=== PATIENT | female | born 1970 | race Caucasian/White ===

== ENCOUNTER 2020-09-16 09:00 | Inpatient (IN) ==
[2020-09-16] MEDS ORDERED: KETOROLAC TROMETHAMINE 15 MG/ML VIAL IV STA (09:51)
[2020-09-16] MEDS ORDERED: ERTAPENEM SODIUM 10 ML IV STA (09:51)
[2020-09-16] MEDS ORDERED: ONDANSETRON INJ 2 MG/ML 2 ML VIAL IV STA (09:51)
[2020-09-16] MEDS ORDERED: ACETAMINOPHEN 500 MG TAB PO STA (09:51)
[2020-09-16] MEDS ORDERED: ALBUT/IPRATROP 3MG/0.5MG NEB 3 ML VIAL NEB STA (09:58)
--- NOTE | 2020-09-16 09:58 | Emergency Department Note ---
Impression & Plan SOB (shortness of breath), Leukocytosis, Flu-like symptoms, Acute dehydration, Skin lesion, Failure of outpatient treatment ED Provider Note NAME: VERONICA PERSON AGE: 50 SEX: F : 1970 ARRIVES VIA: Walk-In INFORMANT: [Patient] ED PROVIDER(S): [Eddie Patino MD] CHIEF COMPLAINT: Illness HISTORY OF PRESENT ILLNESS: The patient is a 50-year-old female presents to the ED with complaints of just not feeling well. She has had shortness of breath, her mouth is sore and feels like it is burning. She has had sweats. The patient states that she has had some cough that has been slightly productive. She has had fever and chills. No nausea or vomiting, no abdominal pain or urinary complaints. She does have a lesion under her left breast that she saw her doctor for yesterday. Cultures were obtained and she was placed on what sounds like Bactrim. She states that she gets these lesions all the time. The patient has not been vaccinated for Covid, she has not had any Covid exposures. Of note, the patient did start prednisone a few days ago, this was started because of her wheezing and dyspnea. REVIEW OF SYSTEMS: See HPI for pertinent positives and negatives. A total of ten systems were reviewed and were otherwise negative. PMHx/PSHx: See Below SOCIAL HISTORY: See Below. PHYSICAL EXAM: GENERAL: Patient is in no acute distress. HEENT: No acute trauma, normocephalic atraumatic, mucous membranes moist, no nasal congestion, no scleral icterus. No throat erythema or exudate, no ulcers. NECK: No stridor, no adenopathy, no meningismus, trachea is midline. LUNGS: Wheezing bilaterally, decreased breath sounds bilaterally, no respiratory distress. HEART: Without murmurs gallops or rubs, regular rate and rhythm. ABDOMEN: Soft, nontender, bowel sounds positive, no hernias, no peritonitis. EXTREMITIES: No cyanosis or edema, full range of motion of all the joints without pain or difficulty, no signs for acute trauma. NEUROLOGIC: Oriented x 3, no acute motor or sensory deficits, no focal weakness. SKIN: The patient has a 2 cm ulcerated lesion underneath her left breast. There is no fluctuance. There is no significant surrounding erythema. The area does not seem tender. She has multiple other areas under this breast which appear to have been older healed lesions. DIFFERENTIAL DIAGNOSIS: Sepsis, UTI, pneumonia, metabolic abnormality, COVID-19, abscess, electrolyte abnormalities, cardiac sources, cellulitis, UTI, bacteremia, intracerebral event, toxicologic etiology, neurologic event, as well as other pathologies. EMERGENCY DEPARTMENT COURSE/PROCEDURES: ECG: Indication was weakness. The ECG shows a normal sinus rhythm with a rate of 73. There is no ST elevation, no PVCs. The QTc is 482. Continuous Cardiac Monitoring: An order was placed for continuous cardiac monitoring. The monitor shows a rate of 70 with normal sinus rhythm. MEDICAL DECISION MAKING: There is a significant leukocytosis at 23,000. This elevation could be consistent with infection or possibly her steroid use. There is a normal hemogl obin and platelet count. No coagulopathy. No significant electrolyte abnormality or kidney failure. Lactic acid level is not elevated making sepsis less likely. No worrisome liver enzyme elevation. ECG showed a sinus rhythm, no acute ischemia. Cardiac enzyme testing x1 is not consistent with acute cardiac injury. Urinalysis does not show infection. Covid testing returned negative. Chest film does not show pneumonia or CHF. On exam, the patient did have an open lesion underneath her left breast, there was no significant surrounding cellulitis, there was no drainage. The patient was given IV saline for hydration. She was given IV Zofran, IV Toradol. She was given a DuoNeb. She was given oral Tylenol. Patient received IV ertapenem as antibiotic coverage. The patient presents with shortness of breath, weakness, fatigue. She has a high white blood cell count. She has an open skin lesion underneath her left breast. She is not improving on her oral antibiotics. On exam, she was wheezing. I think the patient would be best served with a hospital stay. She is not doing well outpatient. I am concerned about early sepsis and/or bacteremia as a cause for some of her presentation. In addition, she appears to be suffering from a flare of COPD. I spoke to the patient, I talked to case management. The on-call hospitalist was consulted. Past Med/Surg History Medical History Anxiety Asthma uses inhaler daily Blood clot associated with vein wall inflammation "superficial blood clot on leg" ~1999 Chronic back pain Depression Hypothyroidism hx -- no medications currently needed Migraine Osteoarthritis Surgical History S/P meniscectomy S/P vein stripping Family History Other No family history of adverse response to anesthesia Social History Smoking Status: Current every day smoker Cigarettes Per Day: 20; Second Hand Exposure: Yes; Do You Dip or Chew Tobacco: No; Tobacco Cessation Education Requested by Patient: No Hx Alcohol Use: No Hx Substance Use: No Preferred Language: [place] Leonean Communication Ability: Effective Outgoing Inspector Required: No Beliefs That Will Affect Care: None marital status: Current Living Situation: Other Current Living Situation Comment: boyfriend current occupational status: employed Other Information That Helps Us Care for You: No Feels Safe at Home: Yes Safety Concerns: Feels Safe At This Time Assistive Devices: Glasses Allergies Allergies Allergy/AdvReac Type Severity Reaction Status Date / Time Penicillins Allergy Severe HIVES, Verified 09/16/20 10:27 THROAT SWELLING Home Meds Home Medications Medication Instructions Recorded Confirmed alprazolam 0.5 mg PO HS 11/06/19 09/16/20 citalopram 20 mg PO QAM 11/06/19 09/16/20 oxycodone-acetaminophen 1 tab PO Q4H PRN 11/06/19 09/16/20 albuterol sulfate 2 puff INHALATION QID PRN 12/18/19 09/16/20 tiotropium bromide [Spiriva 2 puff INHALATION QAM 09/16/20 09/16/20 Respimat] Results & Data (ED) Vital Signs Vital Signs - 24 hr 09/16/20 09:03 09/16/20 09:13 09/16/20 09:15 Temperature 36.8 C Temperature Source Temporal Artery Scan Pulse Rate 84 76 Pulse Rate [Right Finger] 77 Pulse Rate from SpO2 Sensor 75 Pulse Rhythm Regular Pulse Rhythm [Right Finger] Regular Pulse Strength Normal Pulse Strength [Right Finger] Normal Respiratory Rate 26 H 16 15 Respiratory Effort / Characteristics Non-Labored Spontaneous Labored Respiratory Depth Normal Respiratory Pattern Regular Blood Pressure 161/95 H 168/101 H Blood Pressure [Left Arm] 168/101 H Blood Pressure Mean 117 123 Blood Pressure Mean [Left Arm] 123 Blood Pressure Position Sitting Blood Pressure Position [Left Arm] Lying Pulse Oximetry 93 92 92 Oxygen Delivery Method Room Air Room Air Oxygen Flow Rate Sepsis Recent Fever Within 48 Hours No Sepsis New/Unexplained Change in Mental Status N/A Sepsis Action Taken by Nursing No Action Required 09/16/20 09:23 09/16/20 09:30 09/16/20 09:40 Temperature Temperature Source Pulse Rate 76 77 76 Pulse Rate [Right Finger] Pulse Rate from SpO2 Sensor 77 75 76 Pulse Rhythm Pulse Rhythm [Right Finger] Pulse Strength Pulse Strength [Right Finger] Respiratory Rate 18 22 14 Respiratory Effort / Characteristics Respiratory Depth Respiratory Pattern Blood Pressure Blood Pressure [Left Arm] Blood Pressure Mean Blood Pressure Mean [Left Arm] Blood Pressure Position Blood Pressure Position [Left Arm] Pulse Oximetry 91 95 93 Oxygen Delivery Method Oxygen Flow Rate Sepsis Recent Fever Within 48 Hours Sepsis New/Unexplained Change in Mental Status Sepsis Action Taken by Nursing 09/16/20 09:56 09/16/20 10:00 09/16/20 10:10 Temperature Temperature Source Pulse Rate 73 80 Pulse Rate [Right Finger] Pulse Rate from SpO2 Sensor 72 73 79 Pulse Rhythm Pulse Rhythm [Right Finger] Pulse Strength Pulse Strength [Right Finger] Respiratory Rate 20 22 Respiratory Effort / Characteristics Respiratory Depth Respiratory Pattern Blood Pressure Blood Pressure [Left Arm] Blood Pressure Mean Blood Pressure Mean [Left Arm] Blood Pressure Position Blood Pressure Position [Left Arm] Pulse Oximetry 94 96 95 Oxygen Delivery Method Oxygen Flow Rate Sepsis Recent Fever Within 48 Hours Sepsis New/Unexplained Change in Mental Status Sepsis Action Taken by Nursing 09/16/20 10:20 09/16/20 10:21 09/16/20 10:22 Temperature Temperature Source Pulse Rate 72 Pulse Rate [Right Finger] 73 Pulse Rate from SpO2 Sensor 71 Pulse Rhythm Regular Pulse Rhythm [Right Finger] Pulse Strength Pulse Strength [Right Finger] Respiratory Rate 23 18 18 Respiratory Effort / Characteristics Labored Non-Labored Spontaneous Respiratory Depth Respiratory Pattern Blood Pressure Blood Pressure [Left Arm] Blood Pressure Mean Blood Pressure Mean [Left Arm] Blood Pressure Position Blood Pressure Position [Left Arm] Pulse Oximetry 94 95 Oxygen Delivery Method Nasal Cannula Nasal Cannula Nasal Cannula Oxygen Flow Rate 1 2 1.5 Sepsis Recent Fever Within 48 Hours Sepsis New/Unexplained Change in Mental Status Sepsis Action Taken by Nursing 09/16/20 10:26 09/16/20 10:30 09/16/20 10:40 Temperature Temperature Source Pulse Rate 73 74 Pulse Rate [Right Finger] 73 73 Pulse Rate from SpO2 Sensor 73 74 Pulse Rhythm Pulse Rhythm [Right Finger] Regular Regular Pulse Strength Pulse Strength [Right Finger] Normal Normal Respiratory Rate 18 17 15 Respiratory Effort / Characteristics Labored Non-Labored Non-Labored Respiratory Depth Normal Normal Respiratory Pattern Regular Blood Pressure Blood Pressure [Left Arm] 168/101 H 168/101 H Blood Pressure Mean Blood Pressure Mean [Left Arm] 123 123 Blood Pressure Position Blood Pressure Position [Left Arm] Sitting Sitting Pulse Oximetry 92 91 95 Oxygen Delivery Method Nasal Cannula Nasal Cannula Nasal Cannula Oxygen Flow Rate 2 2 2 Sepsis Recent Fever Within 48 Hours Sepsis New/Unexplained Change in Mental Status Sepsis Action Taken by Nursing 09/16/20 10:45 09/16/20 10:50 09/16/20 10:51 Temperature Temperature Source Pulse Rate 72 72 Pulse Rate [Right Finger] 70 Pulse Rate from SpO2 Sensor 73 72 Pulse Rhythm Pulse Rhythm [Right Finger] Regular Pulse Strength Pulse Strength [Right Finger] Normal Respiratory Rate 23 16 17 Respiratory Effort / Characteristics Non-Labored Respiratory Depth Respiratory Pattern Blood Pressure 143/92 H Blood Pressure [Left Arm] 143/92 H Blood Pressure Mean 109 Blood Pressure Mean [Left Arm] 109 Blood Pressure Position Blood Pressure Position [Left Arm] Sitting Pulse Oximetry 95 94 94 Oxygen Delivery Method Nasal Cannula Oxygen Flow Rate 2 Sepsis Recent Fever Within 48 Hours Sepsis New/Unexplained Change in Mental Status Sepsis Action Taken by Nursing 09/16/20 11:00 09/16/20 11:01 09/16/20 11:05 Temperature Temperature Source Pulse Rate 78 72 Pulse Rate [Right Finger] 72 Pulse Rate from SpO2 Sensor 77 Pulse Rhythm Pulse Rhythm [Right Finger] Regular Pulse Strength Pulse Strength [Right Finger] Normal Respiratory Rate 19 20 21 Respiratory Effort / Characteristics Non-Labored Respiratory Depth Respiratory Pattern Blood Pressure 135/95 Blood Pressure [Left Arm] Blood Pressure Mean 108 Blood Pressure Mean [Left Arm] Blood Pressure Position Blood Pressure Position [Left Arm] Pulse Oximetry 97 95 Oxygen Delivery Method Nasal Cannula Nasal Cannula Oxygen Flow Rate 2 2 Sepsis Recent Fever Within 48 Hours Sepsis New/Unexplained Change in Mental Status Sepsis Action Taken by Nursing 09/16/20 11:10 09/16/20 11:20 09/16/20 11:30 Temperature Temperature Source Pulse Rate 72 70 70 Pulse Rate [Right Finger] Pulse Rate from SpO2 Sensor 72 70 69 Pulse Rhythm Pulse Rhythm [Right Finger] Pulse Strength Pulse Strength [Right Finger] Respiratory Rate 14 20 13 Respiratory Effort / Characteristics Spontaneous Respiratory Depth Respiratory Pattern Blood Pressure 134/96 Blood Pressure [Left Arm] Blood Pressure Mean 108 Blood Pressure Mean [Left Arm] Blood Pressure Position Blood Pressure Position [Left Arm] Pulse Oximetry 95 94 94 Oxygen Delivery Method Nasal Cannula Oxygen Flow Rate 2 Sepsis Recent Fever Within 48 Hours Sepsis New/Unexplained Change in Mental Status Sepsis Action Taken by Nursing 09/16/20 11:31 09/16/20 11:32 09/16/20 11:40 Temperature Temperature Source Pulse Rate 72 74 Pulse Rate [Right Finger] 76 Pulse Rate from SpO2 Sensor 71 74 Pulse Rhythm Pulse Rhythm [Right Finger] Regular Pulse Strength Pulse Strength [Right Finger] Normal Respiratory Rate 19 22 13 Respiratory Effort / Characteristics Non-Labored Spontaneous Respiratory Depth Normal Respiratory Pattern Blood Pressure Blood Pressure [Left Arm] 134/96 Blood Pressure Mean Blood Pressure Mean [Left Arm] 108 Blood Pressure Position Blood Pressure Position [Left Arm] Lying Pulse Oximetry 94 95 94 Oxygen Delivery Method Nasal Cannula Oxygen Flow Rate 2 Sepsis Recent Fever Within 48 Hours Sepsis New/Unexplained Change in Mental Status Sepsis Action Taken by Nursing 09/16/20 11:50 09/16/20 12:00 09/16/20 12:01 Temperature Temperature Source Pulse Rate 74 72 71 Pulse Rate [Right Finger] 75 69 Pulse Rate from SpO2 Sensor 74 72 71 Pulse Rhythm Pulse Rhythm [Right Finger] Regular Pulse Strength Pulse Strength [Right Finger] Normal Respiratory Rate 12 13 12 Respiratory Effort / Characteristics Respiratory Depth Respiratory Pattern Blood Pressure 136/100 Blood Pressure [Left Arm] 134/96 136/100 Blood Pressure Mean 112 Blood Pressure Mean [Left Arm] 108 112 Blood Pressure Position Blood Pressure Position [Left Arm] Lying Pulse Oximetry 94 96 96 Oxygen Delivery Method Nasal Cannula Nasal Cannula Oxygen Flow Rate 2 2 Sepsis Recent Fever Within 48 Hours Sepsis New/Unexplained Change in Mental Status Sepsis Action Taken by Nursing 09/16/20 12:10 09/16/20 12:20 09/16/20 13:00 Temperature Temperature Source Pulse Rate 71 71 Pulse Rate [Right Finger] 71 Pulse Rate from SpO2 Sensor 71 71 Pulse Rhythm Pulse Rhythm [Right Finger] Regular Pulse Strength Pulse Strength [Right Finger] Normal Respiratory Rate 15 12 20 Respiratory Effort / Characteristics Respiratory Depth Respiratory Pattern Blood Pressure Blood Pressure [Left Arm] 131/98 Blood Pressure Mean Blood Pressure Mean [Left Arm] 109 Blood Pressure Position Blood Pressure Position [Left Arm] Sitting Pulse Oximetry 97 97 94 Oxygen Delivery Method Nasal Cannula Oxygen Flow Rate 2 Sepsis Recent Fever Within 48 Hours Sepsis New/Unexplained Change in Mental Status Sepsis Action Taken by Intermediate Medications Current Medication List: was personally reviewed by me Laboratory Data Attestation: I reviewed the patient's lab results. Result diagrams: 09/16/20 09:31 09/16/20 09:31 Lab Results 09/16/20 09/16/20 09/16/20 Range/Units 09:31 09:31 09:31 WBC 22.19 H (4.8-10.8) K/uL RBC 4.33 (4.2-5.4) M/uL Hgb 14.1 (12.0-16.0) g/dL Hct 41.3 (37-47) % MCV 95.4 (80-100) fL MCH 32.6 (25-34) pg MCHC 34.1 (32-36) g/dL RDW Std Deviation 45.7 (36.4-46.3) fL RDW Coeff of Elenita 13.1 (11.5-14.5) % Plt Count 331 (130-400) K/uL MPV 10.3 (7.4-10.4) fL Immature Gran % (Auto) 0.2 % Neut % (Auto) 87.8 % Lymph % (Auto) 7.5 % Cobb % (Auto) 4.3 % Eos % (Auto) 0.1 % Baso % (Auto) 0.1 % Neut # (Auto) 19.47 H (1.4-6.5) K/uL Lymph # (Auto) 1.66 (1.2-3.4) K/uL Cobb # (Auto) 0.95 H (0.11-0.59) K/uL Eos # (Auto) 0.03 (0-0.5) K/uL Baso # (Auto) 0.03 (0-0.2) K/uL Immature Gran # (Auto) 0.05 H (0.00-0.02) K/uL PT 10.8 (9.0-12.0) Seconds INR 1.1 (0.9-1.1) APTT 28.2 (21.0-31.0) Seconds PTT Ratio 1.1 Sodium 136 (136-145) mmol/L Potassium 3.8 (3.5-5.1) mmol/L Chloride 103 (98-107) mmol/L Carbon Dioxide 27 (21-32) mmol/L Anion Gap 6.0 (3-11) BUN 11 (7-18) mg/dl Creatinine 0.55 L (0.6-1.2) mg/dl Est Cr Clr Drug Dosing 132.1 ml/min Est GFR ( Amer) 125.9 ml/min Est GFR (Non-Af Amer) 108.6 ml/min BUN/Creatinine Ratio 19.1 (10-20) Glucose 103 H (70-99) mg/dl Lactate (0.4-2.0) mmol/L Calcium 9.0 (8.5-10.1) mg/dl Magnesium 2.0 (1.8-2.4) mg/dl Total Bilirubin 1.4 H (0.2-1) mg/dl AST 14 L (15-37) U/L ALT 21 (12-78) U/L Alkaline Phosphatase 94 (45-117) U/L Troponin I < 0.015 (0-0.045) ng/ml Total Protein 7.0 (6.4-8.2) gm/dl Albumin 3.3 L (3.4-5.0) gm/dl Globulin 3.7 (2.5-4.0) gm/dl Albumin/Globulin Ratio 0.9 (0.9-2) Procalcitonin (0-0.5) ng/ml Urine Color Urine Appearance (Clear) Urine pH (4.5-7.5) Ur Specific [place] (1.000-1.030) Urine Protein (Negative) Urine Glucose (UA) (Negative) Urine Ketones (Negative) Urine Blood (Negative) Urine Nitrite (Negative) Urine Bilirubin (Negative) Urine Urobilinogen (Negative) Ur Leukocyte Esterase (Negative) COVID-19 Eval Order SARS-CoV-2 (PCR) (Negative) 09/16/20 09/16/20 09/16/20 Range/Units 09:31 10:15 10:19 WBC (4.8-10.8) K/uL RBC (4.2-5.4) M/uL Hgb (12.0-16.0) g/dL Hct (37-47) % MCV (80-100) fL MCH (25-34) pg MCHC (32-36) g/dL RDW Std Deviation (36.4-46.3) fL RDW Coeff of Elenita (11.5-14.5) % Plt Count (130-400) K/uL MPV (7.4-10.4) fL Immature Gran % (Auto) % Neut % (Auto) % Lymph % (Auto) % Cobb % (Auto) % Eos % (Auto) % Baso % (Auto) % Neut # (Auto) (1.4-6.5) K/uL Lymph # (Auto) (1.2-3.4) K/uL Cobb # (Auto) (0.11-0.59) K/uL Eos # (Auto) (0-0.5) K/uL Baso # (Auto) (0-0.2) K/uL Immature Gran # (Auto) (0.00-0.02) K/uL PT (9.0-12.0) Seconds INR (0.9-1.1) APTT (21.0-31.0) Seconds PTT Ratio Sodium (136-145) mmol/L Potassium (3.5-5.1) mmol/L Chloride (98-107) mmol/L Carbon Dioxide (21-32) mmol/L Anion Gap (3-11) BUN (7-18) mg/dl Creatinine (0.6-1.2) mg/dl Est Cr Clr Drug Dosing ml/min Est GFR ( Amer) ml/min Est GFR (Non-Af Amer) ml/min BUN/Creatinine Ratio (10-20) Glucose (70-99) mg/dl Lactate 1.1 (0.4-2.0) mmol/L Calcium (8.5-10.1) mg/dl Magnesium (1.8-2.4) mg/dl Total Bilirubin (0.2-1) mg/dl AST (15-37) U/L ALT (12-78) U/L Alkaline Phosphatase (45-117) U/L Troponin I (0-0.045) ng/ml Total Protein (6.4-8.2) gm/dl Albumin (3.4-5.0) gm/dl Globulin (2.5-4.0) gm/dl Albumin/Globulin Ratio (0.9-2) Procalcitonin 0.09 (0-0.5) ng/ml Urine Color Yellow Urine Appearance Clear (Clear) Urine pH 7.5 (4.5-7.5) Ur Specific [place] 1.008 (1.000-1.030) Urine Protein Negative (Negative) Urine Glucose (UA) Negative (Negative) Urine Ketones Negative (Negative) Urine Blood Negative (Negative) Urine Nitrite Negative (Negative) Urine Bilirubin Negative (Negative) Urine Urobilinogen Negative (Negative) Ur Leukocyte Esterase Negative (Negative) COVID-19 Eval Order SARS-CoV-2 (PCR) (Negative) 09/16/20 09/16/20 Range/Units 10:32 10:32 WBC (4.8-10.8) K/uL RBC (4.2-5.4) M/uL Hgb (12.0-16.0) g/dL Hct (37-47) % MCV (80-100) fL MCH (25-34) pg MCHC (32-36) g/dL RDW Std Deviation (36.4-46.3) fL RDW Coeff of Elenita (11.5-14.5) % Plt Count (130-400) K/uL MPV (7.4-10.4) fL Immature Gran % (Auto) % Neut % (Auto) % Lymph % (Auto) % Cobb % (Auto) % Eos % (Auto) % Baso % (Auto) % Neut # (Auto) (1.4-6.5) K/uL Lymph # (Auto) (1.2-3.4) K/uL Cobb # (Auto) (0.11-0.59) K/uL Eos # (Auto) (0-0.5) K/uL Baso # (Auto) (0-0.2) K/uL Immature Gran # (Auto) (0.00-0.02) K/uL PT (9.0-12.0) Seconds INR (0.9-1.1) APTT (21.0-31.0) Seconds PTT Ratio Sodium (136-145) mmol/L Potassium (3.5-5.1) mmol/L Chloride (98-107) mmol/L Carbon Dioxide (21-32) mmol/L Anion Gap (3-11) BUN (7-18) mg/dl Creatinine (0.6-1.2) mg/dl Est Cr Clr Drug Dosing ml/min Est GFR ( Amer) ml/min Est GFR (Non-Af Amer) ml/min BUN/Creatinine Ratio (10-20) Glucose (70-99) mg/dl Lactate (0.4-2.0) mmol/L Calcium (8.5-10.1) mg/dl Magnesium (1.8-2.4) mg/dl Total Bilirubin (0.2-1) mg/dl AST (15-37) U/L ALT (12-78) U/L Alkaline Phosphatase (45-117) U/L Troponin I (0-0.045) ng/ml Total Protein (6.4-8.2) gm/dl Albumin (3.4-5.0) gm/dl Globulin (2.5-4.0) gm/dl Albumin/Globulin Ratio (0.9-2) Procalcitonin (0-0.5) ng/ml Urine Color Urine Appearance (Clear) Urine pH (4.5-7.5) Ur Specific [place] (1.000-1.030) Urine Protein (Negative) Urine Glucose (UA) (Negative) Urine Ketones (Negative) Urine Blood (Negative) Urine Nitrite (Negative) Urine Bilirubin (Negative) Urine Urobilinogen (Negative) Ur Leukocyte Esterase (Negative) COVID-19 Eval Order Covid19 at [facility] SARS-CoV-2 (PCR) NEGATIVE (Negative) Administered Medications Acetaminophen (Acetaminophen 325 Mg Tab) 650 mg PO Q4H PRN PRN Reason: pain/fever Stop: 10/16/20 14:23 Last Admin: 09/16/20 15:18 Dose: 650 mg Documented by: [id number] Albuterol (Albut/Ipratrop 3mg/0.5mg Neb 3 Ml Vial) 3 ml NEB QIDR SUKUMAR Stop: 10/16/20 14:59 Last Admin: 09/16/20 17:20 Dose: 3 ml Documented by: [id number] Methylprednisolone 60 mg/ (Syringe) 0.96 mls @ 1.5 mls/min IV Q8H SUKUMAR Stop: 10/16/20 14:59 Last Admin: 09/16/20 16:22 Dose: 1.5 mls/min Documented by: [id number] Discontinued Medications Acetaminophen (Acetaminophen 500 Mg Tab) 1,000 mg PO NOW STA Stop: 09/16/20 09:52 Last Admin: 09/16/20 10:08 Dose: 1,000 mg Documented by: [id number] Albuterol (Albut/Ipratrop 3mg/0.5mg Neb 3 Ml Vial) 3 ml NEB NOW STA Stop: 09/16/20 09:59 Last Admin: 09/16/20 10:21 Dose: 3 ml Documented by: [id number] Sodium Chloride (Nss 1000ml) 1,000 mls @ 999 mls/hr IV .[id number] SUKUMAR Stop: 09/16/20 11:00 Last Infusion: 09/16/20 11:21 Dose: 0 mls/hr Documented by: [id number] Admin: 09/16/20 10:13 Dose: 999 mls/hr Documented by: [id number] Ertapenem (Invanz) 10 mls @ 2 mls/min IV NOW STA Stop: 09/16/20 09:55 Last Admin: 09/16/20 11:00 Dose: 2 mls/min Documented by: [id number] Ketorolac Tromethamine (Ketorolac Tromethamine 15 Mg/Ml Vial) 15 mg IV NOW STA Stop: 09/16/20 09:52 Last Admin: 09/16/20 10:16 Dose: 15 mg Documented by: [id number] Ondansetron HCl (Ondansetron Inj 2 Mg/Ml 2 Ml Vial) 4 mg IV NOW STA Stop: 09/16/20 09:52 Last Admin: 09/16/20 10:16 Dose: 4 mg Documented by: [id number] Imaging Data Radiologist's Impression: Chest X-Ray 09/16/20 09:51 SINGLE VIEW CHEST CLINICAL HISTORY: Sepsis. FINDINGS: An AP, portable, upright chest radiograph is compared to study dated 12/16/2019. The heart is top normal for projection. There is mild bibasilar atelectasis. The lungs and pleural spaces are otherwise clear. No pneumothorax is seen. The bony thorax is grossly intact. IMPRESSION: No active disease in the chest. ACT 112: Negative or not required by law. Electronically signed by: Eddie Chin M.D. 09/16/2020 11:33 AM Discharge Plan Visit Data Chief Complaint: Illness Stated Complaint: HARD TIME BREATHING/FEVER/COUGH ED Provider: Eddie Patino Discharge Problem: SOB (shortness of breath), Leukocytosis, Flu-like symptoms, Acute dehydration, Skin lesion, Failure of outpatient treatment Patient Disposition: Admitted As Inpatient Condition: Fair Discharge Instructions Interventions: ED Discharge Assessment Last Done: 09/16/20 13:57 Discharge Problem: Leukocytosis Qualifiers: Leukocytosis type: unspecified Qualified Code(s): D72.829 - Elevated white blood cell count, unspecified
[2020-09-16] MEDS ORDERED: SODIUM CHLORIDE 0.9% 1000ML 1,000 ML IV SCH (10:00)
[2020-09-16 10:02] LABS: Basophils # (auto) 0.03 K/uL (0-0.2); Basophils % (auto) 0.1 %; Eosinophils # (auto) 0.03 K/uL (0-0.5); Eosinophils % (auto) 0.1 %; Hematocrit (blood only) 41.3 % (37-47); Hemoglobin 14.1 g/dL (12.0-16.0); Immature Granulocytes # (auto) 0.05 K/uL (0.00-0.02); Immature Granulocytes % (auto) 0.2 %; Lymphocytes # (auto) 1.66 K/uL (1.2-3.4); Lymphocytes % (auto) 7.5 %; Mean Corpuscular Hemoglobin 32.6 pg (25-34); Mean Corpuscular Hgb Conc 34.1 g/dL (32-36); Mean Corpuscular Volume 95.4 fL (80-100); Mean Platelet Volume 10.3 fL (7.4-10.4); Monocytes # (auto) 0.95 K/uL (0.11-0.59); Monocytes % (auto) 4.3 %; Neutrophils # (auto) 19.47 K/uL (1.4-6.5); Neutrophils % (auto) 87.8 %; Platelet Count 331 K/uL (130-400); RDW Coefficient of Variation 13.1 % (11.5-14.5); RDW Standard Deviation 45.7 fL (36.4-46.3); Red Blood Count 4.33 M/uL (4.2-5.4); White Blood Count 22.19 K/uL (4.8-10.8)
[2020-09-16 10:10] LABS: Alanine Aminotransferase 21 U/L (12-78); Albumin Level 3.3 gm/dl (3.4-5.0); Aspartate Aminotransferase 14 U/L (15-37); BUN Creatinine Ratio 19.1 (10-20); Blood Urea Nitrogen 11 mg/dl (7-18); Carbon Dioxide 27 mmol/L (21-32); Chloride 103 mmol/L (98-107); Creatinine Clr Calc Pharmacy 132.1 ml/min; Est GFR (African American) 125.9 ml/min; Est GFR (Non-African American) 108.6 ml/min; Glucose 103 mg/dl (70-99); Potassium 3.8 mmol/L (3.5-5.1); Sodium 136 mmol/L (136-145)
[2020-09-16 10:12] LABS: INR 1.1 (0.9-1.1); Partial Thromboplastin Ratio 1.1; Partial Thromboplastin Time 28.2 Seconds (21.0-31.0); Prothrombin Time 10.8 Seconds (9.0-12.0)
[2020-09-16 10:15] LABS: Albumin Globulin Ratio 0.9 (0.9-2); Alkaline Phosphatase 94 U/L (45-117); Bilirubin,Total 1.4 mg/dl (0.2-1); Globulin 3.7 gm/dl (2.5-4.0); Troponin I < 0.015 ng/ml (0-0.045)
[2020-09-16 10:32] LABS: Appearance Urine Clear (Clear); Bilirubin Urine Negative (Negative); Blood Urine Negative (Negative); Color Urine Yellow; Glucose Urine UA Negative (Negative); Ketones Urine Negative (Negative); Leukocyte Esterase Urine Negative (Negative); Nitrite Urine Negative (Negative); Protein Urine Negative (Negative); Specific Gravity Urine 1.008 (1.000-1.030); Urobilinogen Urine Negative (Negative); pH Urine 7.5 (4.5-7.5)
--- NOTE | 2020-09-16 11:35 | XRay Report ---
SINGLE VIEW CHEST CLINICAL HISTORY: Sepsis. FINDINGS: An AP, portable, upright chest radiograph is compared to study dated 12/16/2019. The heart i s top normal for projection. There is mild bibasilar atelectasis. The lungs and pleural spaces are ot herwise clear. No pneumothorax is seen. The bony thorax is grossly intact. IMPRESSION: No active disease in the chest. ACT 112: Negative or not required by law. Electronically signed by: Eddie Chin M.D. 09/16/2020 11:33 AM
--- NOTE | 2020-09-16 13:30 | History & Physical Report ---
Date of Service September 16, 2020 Assessment & Plan (1) Chronic bronchitis with acute exacerbation: Patient is a long-term smoker, has no official diagnosis of COPD. We will admit to a nonmonitored bed. Start IV Solu-Medrol at 60 mg every 8 hours, rapid titration. DuoNebs 4 times daily. Check sputum and blood cultures considering leukocytosis. O2 support as needed to keep sats at or around 92%. Smoking cessation briefly discussed with patient. We will suggest patient undergo a full PFTs once acute issues have resolved. (2) Sebaceous cyst of breast: Wound on breast appears to be a sebaceous cyst which has spontaneously drained. However, concerned regarding the area in question and the lack of previous screening. We will ask general surgery to evaluate, may need some wound care to site. I will hold off on antibiotics for now, suspect this is localized inflammation that will resolve. Patient should have appropriate cancer screening as outpatient after discharge. (3) Leukocytosis: Suspect this is secondary to oral steroid treatment prior to presentation. Patient is currently afebrile. Will await blood cultures, sputum culture. I did appreciate chest x-ray report, will repeat PA and lateral films. If patient develops other signs of infection, including fever, worsening of symptoms such as shortness of breath, or spreading erythema of breast lesion, would consider restarting antibiotics. (4) Chronic back pain: I will hold off on oxycodone for now, continue to monitor symptoms. (5) Anxiety: Will order Celexa and Xanax nightly as noted. History of Present Illness Primary Care Provider: Shell No PA-C This is a 50-year-old female with past medical history chronic back pain and tobacco abuse that presents today complaining of "not feeling well ". Patient is a decent historian. Patient has two separate issues. The 1st, she has been having some cough and congestion over the past 1.5 weeks. She has noticed laryngitis symptoms and has lost her voice. She has not taken her temperature but has had some diaphoresis at times. She has ongoing cough which is loose but nonproductive. She has had no issues with swallowing or keeping food down. She has some mild mild malaise. Patient had called her doctor and was started on oral prednisone, she has been on this for the past 3 days without relief. Of note, she is a longtime 1 pack/day smoker. Her other issue, she has had ongoing lesions under her breast. She tells me this has been going on over 10 years, the lesions tend to appear, open and drain and then heal up. She has multiple scars in this area from previous lesions that have healed. The symptoms very localized and she has no systemic symptoms from this. Her last lesion is a small indurated area on her lower outer quadrant of her left breast, this is open with a small amount of drainage. Merna wynne had seen her physician in the office yesterday and had been started on Bactrim. She tells me this lesion is not unusual for her previous findings. Of note, she has never had a mammogram. Allergies Allergy/AdvReac Type Severity Reaction Status Date / Time Penicillins Allergy Severe HIVES, Verified 09/16/20 10:27 THROAT SWELLING Home Medications Medication Instructions Recorded Confirmed Type alprazolam 0.5 mg PO HS 11/06/19 09/16/20 History citalopram 20 mg PO QAM 11/06/19 09/16/20 History oxycodone-acetaminophen 1 tab PO Q4H PRN 11/06/19 09/16/20 History albuterol sulfate 2 puff INHALATION QID PRN 12/18/19 09/16/20 History tiotropium bromide [Spiriva 2 puff INHALATION QAM 09/16/20 09/16/20 History Respimat] Past Med/Surg History Medical History (Updated 09/16/20 @ 13:24 by Louis Barron DO) Anxiety Asthma uses inhaler daily Blood clot associated with vein wall inflammation "superficial blood clot on leg" ~2000 Chronic back pain Depression Hypothyroidism hx -- no medications currently needed Migraine Osteoarthritis Surgical History S/P meniscectomy S/P vein stripping Family History Other No family history of adverse response to anesthesia Social History Smoking Status: Never smoker Cigarettes Per Day: 20; Second Hand Exposure: No; Hx Alcohol Use: No Hx Substance Use: No Preferred Language: Citizen Of [place] Communication Ability: Effective [employer] 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 Required: No Beliefs That Will Affect Care: None marital status: Current Living Situation: Family Current Living Situation Comment: son current occupational status: employed Feels Safe at Home: Yes Assistive Devices: Glasses Review of Systems Constitutional: + chills, + fatigue and + malaise; no fever, no weight loss and no weight gain Ear, Nose, Mouth, Throat: as per Subjective / HPI Respiratory: + cough, + chest congestion, + dyspnea and + wheezing; no pain on inspiration, no pain with cough and no sputum production Cardiovascular: no chest pain, no dyspnea, no orthopnea and no lightheadedness Gastrointestinal: no abdominal pain, no nausea, no vomiting, no change in stools, no constipation and no diarrhea/loose stools Genitourinary: no dysuria, no difficulty urinating, no urinary frequency, no urinary hesitancy and no urinary urgency Musculoskeletal: no back pain, no neck pain, no loss of height and no joint pain Integumentary: + boil, + lesions and + new lesions; no erythema, no dry skin, no pruritus, no urticaria and no skin swelling Neurologic: no gait abnormality, no unsteadiness, no generalized weakness and no tingling Psychiatric: as per Subjective / HPI Endocrine: as per Subjective / HPI Physical Exam Constitutional: well nourished, cooperative and comfortable; no acute distress ENMT: hoarse voice Neck: trachea midline, no thyromegaly Respiratory: normal respiratory effort; no respiratory distress Auscultation: + diminished lung sounds and + wheezes; no crackles and no rales Cardiovascular: Rate/Rhythm: regular rate and regular rhythm Heart Sounds: normal S1 and normal S2 Vessels: no JVD and no carotid bruit Gastrointestinal (Abdomen): normal bowel sounds, soft, nontender, no hepatosplenomegaly Musculoskeletal: no cyanosis or clubbing, extremities motor strength 5/5 Skin: L breast, 2 healed hypertrophic scars under breast. indurated lesion left outer quad, pinhole opening without drainage or expression. minimally tender. Neurologic: PERRL, EOMI, accommodation nl, no face palsy, no dysarthria Psychiatric: A+Ox3, euthymic affect Results & Data Results & Data ([facility]) Vital Signs (Past 12 Hours) Vital Signs Temp Pulse Pulse Resp BP BP Pulse Ox 09/16/20 12:20 71 12 97 09/16/20 12:10 71 15 97 09/16/20 12:01 71 12 96 09/16/20 12:00 72 69 13 136/100 136/100 96 09/16/20 11:50 74 75 12 134/96 94 09/16/20 11:40 74 13 94 09/16/20 11:32 76 22 134/96 95 09/16/20 11:31 72 19 94 09/16/20 11:30 70 13 134/96 94 09/16/20 11:20 70 20 94 09/16/20 11:10 72 14 95 09/16/20 11:05 72 21 09/16/20 11:01 72 20 95 09/16/20 11:00 78 19 135/95 97 09/16/20 10:51 72 17 94 09/16/20 10:50 72 16 143/92 H 94 09/16/20 10:45 70 23 143/92 H 95 09/16/20 10:40 74 15 95 09/16/20 10:30 73 73 17 168/101 H 91 09/16/20 10:26 73 18 168/101 H 92 09/16/20 10:22 73 18 95 09/16/20 10:21 18 09/16/20 10:20 72 23 94 09/16/20 10:10 80 22 95 09/16/20 10:00 73 20 96 09/16/20 09:56 94 09/16/20 09:40 76 14 93 09/16/20 09:30 77 22 95 09/16/20 09:23 76 18 91 09/16/20 09:15 77 15 168/101 H 92 09/16/20 09:13 76 16 168/101 H 92 09/16/20 09:03 36.8 C 84 26 H 161/95 H 93 PG Care Time/CCT Total # of Minutes Spent Total Time Spent with Patient: Total time spent is greater than 50% in coordination of care (as documented) at patient's floor/unit and/or counseling patient: Coding Level of Care Code 88786 Initial Inpt Care Lvl 3 Diagnoses Chronic bronchitis with acute exacerbation J20.9; J42 Sebaceous cyst of breast N60.89 Leukocytosis D72.829 Chronic back pain M54.9; G89.29 Anxiety F41.9
[2020-09-16] MEDS ORDERED: ALBUTEROL HFA 8 GM INHALER INH PRN (14:24)
[2020-09-16] MEDS ORDERED: methylPREDNISolone 125 MG/2 ML VIAL IV SCH (14:24)
--- NOTE | 2020-09-16 15:06 | Surgery Consultation ---
Date of Consultation September 16, 2020 Assessment & Plan (1) Wound of left breast: 50 year-old female with chronic history of lesions of the inframammary crease of bilateral breasts now with superficial breast lesion of left breast 6 o'clock 2 cm from areola with small opening present and small amount of purulence expressed. No prior history of mammography. Possible hidradenitis of the inframammary folds ? Plan: No need for surgical drainage as the lesion has opened and drained on its own. Would recommend course of oral Bactrim. Will follow along Will need outpatient mammography as she has never had one Continue medical management Dr. Jewell has seen and examined pt, please see addendum for further recommendations/plan. Supervising Physician Co-Signing Physician Notes I have interviewed and examined this patient I agree with the above note. She has what appears to be a possible sebaceous cyst or hidradenitis suppurativa at the 6 o'clock position of the left breast. There are no similar findings on the right. I do not feel that there is any need for surgical intervention at this time. I would begin her on antibiotics with Bactrim although the cultures are pending. I have also recommended a mammogram as an outpatient. History of Present Illness Reason for Consultation: left breast wound Requesting Physician: Louis Barron DO Attending Physician: Louis Barron DO History of Present Illness Spring is a 50 year-old female who presented to emergency department due to not feeling well. States she had coughing, sore throat, and loss of voice. Had chills at home. Was placed on oral steroids for past 3 days and saw PCP yesterday in office. Admitted under hospitalist service for COPD exacerbation. Our services consulted for left breast wound. Per patient she has had multiple wounds under her breasts for at least 4 years. She has a history of wound on her belly button years ago as well as buttocks that needed lanced due to inflammation. She states she had infection on her arm many years ago which was MRSA but no other known MRSA infections. Denies of any similar infections/lesions in the bilateral axilla or groin. She is not a diabetic. She is a chronic smoker. 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 She states her pcp did a culture of the left breast lesion yesterday and was placed on oral antibiotics. Per [facility] records, culture still pending. Denies previous mammography. Denies of any family history of breast cancer or breast issues. Allergies Allergy/AdvReac Type Severity Reaction Status Date / Time Penicillins Allergy Severe HIVES, Verified 09/16/20 10:27 THROAT SWELLING Home Medications Medication Instructions Recorded Confirmed Type alprazolam 0.5 mg PO HS 11/06/19 09/16/20 History citalopram 20 mg PO QAM 11/06/19 09/16/20 History oxycodone-acetaminophen 1 tab PO Q4H PRN 11/06/19 09/16/20 History albuterol sulfate 2 puff INHALATION QID PRN 12/18/19 09/16/20 History tiotropium bromide [Spiriva 2 puff INHALATION QAM 09/16/20 09/16/20 History Respimat] Patient History Medical History Anxiety Asthma uses inhaler daily Blood clot associated with vein wall inflammation "superficial blood clot on leg" ~2000 Chronic back pain Depression Hypothyroidism hx -- no medications currently needed Migraine Osteoarthritis Surgical History S/P meniscectomy S/P vein stripping Family History Other No family history of adverse response to anesthesia Social History Smoking Status: Current every day smoker Cigarettes Per Day: 20; Second Hand Exposure: Yes; Do You Dip or Chew Tobacco: No; Tobacco Cessation Education Requested by Patient: No Hx Alcohol Use: No Hx Substance Use: No Preferred Language: Bulgarian Communication Ability: Effective 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 Beliefs That Will Affect Care: None marital status: Current Living Situation: Other Current Living Situation Comment: boyfriend current occupational status: employed Other Information That Helps Us Care for You: No Feels Safe at Home: Yes Safety Concerns: Feels Safe At This Time Assistive Devices: Glasses Review of Systems Review of Systems: All systems reviewed & are unremarkable except as noted in HPI & below Physical Exam Constitutional: WD/WN, vitals as above no acute distress and not ill appearing Respiratory: normal respiratory effort; no respiratory distress, no labored breathing, no retractions and does not use accessory muscles oxygen via nasal cannula Chest (Breasts): Breast: no skin thickening, + abnormal palpation of breast, no breast mass and no breast tenderness Additional Comments: there is a superficial cyst of the left breast just 6 o'clock about 2 cm from the areola, there is an opening and small amount of purulence expressed, no associated breast mass. There are scars present in the inframammary fold of the left and right breast Skin: no rashes, warm and dry Psychiatric: A+Ox3, euthymic affect Results & Data ([facility]) Vital Signs (Past 12 Hours) Vital Signs Temp Pulse Pulse Resp BP BP Pulse Ox 09/16/20 14:35 36.8 C 63 18 132/88 94 09/16/20 14:33 36.8 C 63 18 132/88 94 09/16/20 14:31 36.8 C 63 18 132/88 94 09/16/20 13:00 71 20 131/98 94 09/16/20 12:20 71 12 97 09/16/20 12:10 71 15 97 09/16/20 12:01 71 12 96 09/16/20 12:00 72 69 13 136/100 136/100 96 09/16/20 11:50 74 75 12 134/96 94 09/16/20 11:40 74 13 94 09/16/20 11:32 76 22 134/96 95 09/16/20 11:31 72 19 94 09/16/20 11:30 70 13 134/96 94 09/16/20 11:20 70 20 94 09/16/20 11:10 72 14 95 09/16/20 11:05 72 21 09/16/20 11:01 72 20 95 09/16/20 11:00 78 19 135/95 97 09/16/20 10:51 72 17 94 09/16/20 10:50 72 16 143/92 H 94 09/16/20 10:45 70 23 143/92 H 95 09/16/20 10:40 74 15 95 09/16/20 10:30 73 73 17 168/101 H 91 09/16/20 10:26 73 18 168/101 H 92 09/16/20 10:22 73 18 95 09/16/20 10:21 18 09/16/20 10:20 72 23 94 09/16/20 10:10 80 22 95 09/16/20 10:00 73 20 96 09/16/20 09:56 94 09/16/20 09:40 76 14 93 09/16/20 09:30 77 22 95 09/16/20 09:23 76 18 91 09/16/20 09:15 77 15 168/101 H 92 09/16/20 09:13 76 16 168/101 H 92 09/16/20 09:03 36.8 C 84 26 H 161/95 H 93 Laboratory Results 09/16/20 09/16/20 09/16/20 Range/Units 10:32 10:32 10:19 WBC (4.8-10.8) K/uL RBC (4.2-5.4) M/uL Hgb (12.0-16.0) g/dL Hct (37-47) % MCV (80-100) fL MCH (25-34) pg MCHC (32-36) g/dL RDW Std Deviation (36.4-46.3) fL RDW Coeff of Elenita (11.5-14.5) % Plt Count (130-400) K/uL MPV (7.4-10.4) fL Immature Gran % (Auto) % Neut % (Auto) % Lymph % (Auto) % [place]inn % (Auto) % Eos % (Auto) % Baso % (Auto) % Neut # (Auto) (1.4-6.5) K/uL Lymph # (Auto) (1.2-3.4) K/uL Linn # (Auto) (0.11-0.59) K/uL Eos # (Auto) (0-0.5) K/uL Baso # (Auto) (0-0.2) K/uL Immature Gran # (Auto) (0.00-0.02) K/uL PT (9.0-12.0) Seconds INR (0.9-1.1) APTT (21.0-31.0) Seconds PTT Ratio Sodium (136-145) mmol/L Potassium (3.5-5.1) mmol/L Chloride (98-107) mmol/L Carbon Dioxide (21-32) mmol/L Anion Gap (3-11) BUN (7-18) mg/dl Creatinine (0.6-1.2) mg/dl Est Cr Clr Drug Dosing ml/min Est GFR ( Amer) ml/min Est GFR (Non-Af Amer) ml/min BUN/Creatinine Ratio (10-20) Glucose (70-99) mg/dl Lactate (0.4-2.0) mmol/L Calcium (8.5-10.1) mg/dl Magnesium (1.8-2.4) mg/dl Total Bilirubin (0.2-1) mg/dl AST (15-37) U/L ALT (12-78) U/L Alkaline Phosphatase (45-117) U/L Troponin I (0-0.045) ng/ml Total Protein (6.4-8.2) gm/dl Albumin (3.4-5.0) gm/dl Globulin (2.5-4.0) gm/dl Albumin/Globulin Ratio (0.9-2) Procalcitonin (0-0.5) ng/ml Urine Color Yellow Urine Appearance Clear (Clear) Urine pH 7.5 (4.5-7.5) Ur Specific [place] 1.008 (1.000-1.030) Urine Protein Negative (Negative) Urine Glucose (UA) Negative (Negative) Urine Ketones Negative (Negative) Urine Blood Negative (Negative) Urine Nitrite Negative (Negative) Urine Bilirubin Negative (Negative) Urine Urobilinogen Negative (Negative) Ur Leukocyte Esterase Negative (Negative) COVID-19 Eval Order Covid19 at [facility] SARS-CoV-2 (PCR) NEGATIVE (Negative) 09/16/20 09/16/20 09/16/20 Range/Units 10:15 09:31 09:31 WBC (4.8-10.8) K/uL RBC (4.2-5.4) M/uL Hgb (12.0-16.0) g/dL Hct (37-47) % MCV (80-100) fL MCH (25-34) pg MCHC (32-36) g/dL RDW Std Deviation (36.4-46.3) fL RDW Coeff of Elenita (11.5-14.5) % Plt Count (130-400) K/uL MPV (7.4-10.4) fL Immature Gran % (Auto) % Neut % (Auto) % Lymph % (Auto) % Linn % (Auto) % Eos % (Auto) % Baso % (Auto) % Neut # (Auto) (1.4-6.5) K/uL Lymph # (Auto) (1.2-3.4) K/uL Linn # (Auto) (0.11-0.59) K/uL Eos # (Auto) (0-0.5) K/uL Baso # (Auto) (0-0.2) K/uL Immature Gran # (Auto) (0.00-0.02) K/uL PT (9.0-12.0) Seconds INR (0.9-1.1) APTT (21.0-31.0) Seconds PTT Ratio Sodium 136 (136-145) mmol/L Potassium 3.8 (3.5-5.1) mmol/L Chloride 103 (98-107) mmol/L Carbon Dioxide 27 (21-32) mmol/L Anion Gap 6.0 (3-11) BUN 11 (7-18) mg/dl Creatinine 0.55 L (0.6-1.2) mg/dl Est Cr Clr Drug Dosing 132.1 ml/min Est GFR ( Amer) 125.9 ml/min Est GFR (Non-Af Amer) 108.6 ml/min BUN/Creatinine Ratio 19.1 (10-20) Glucose 103 H (70-99) mg/dl Lactate 1.1 (0.4-2.0) mmol/L Calcium 9.0 (8.5-10.1) mg/dl Magnesium 2.0 (1.8-2.4) mg/dl Total Bilirubin 1.4 H (0.2-1) mg/dl AST 14 L (15-37) U/L ALT 21 (12-78) U/L Alkaline Phosphatase 94 (45-117) U/L Troponin I < 0.015 (0-0.045) ng/ml Total Protein 7.0 (6.4-8.2) gm/dl Albumin 3.3 L (3.4-5.0) gm/dl Globulin 3.7 (2.5-4.0) gm/dl Albumin/Globulin Ratio 0.9 (0.9-2) Procalcitonin 0.09 (0-0.5) ng/ml Urine Color Urine Appearance (Clear) Urine pH (4.5-7.5) Ur Specific [place] (1.000-1.030) Urine Protein (Negative) Urine Glucose (UA) (Negative) Urine Ketones (Negative) Urine Blood (Negative) Urine Nitrite (Negative) Urine Bilirubin (Negative) Urine Urobilinogen (Negative) Ur Leukocyte Esterase (Negative) COVID-19 Eval Order SARS-CoV-2 (PCR) (Negative) 09/16/20 09/16/20 Range/Units 09:31 09:31 WBC 22.19 H (4.8-10.8) K/uL RBC 4.33 (4.2-5.4) M/uL Hgb 14.1 (12.0-16.0) g/dL Hct 41.3 (37-47) % MCV 95.4 (80-100) fL MCH 32.6 (25-34) pg MCHC 34.1 (32-36) g/dL RDW Std Deviation 45.7 (36.4-46.3) fL RDW Coeff of Elenita 13.1 (11.5-14.5) % Plt Count 331 (130-400) K/uL MPV 10.3 (7.4-10.4) fL Immature Gran % (Auto) 0.2 % Neut % (Auto) 87.8 % Lymph % (Auto) 7.5 % Linn % (Auto) 4.3 % Eos % (Auto) 0.1 % Baso % (Auto) 0.1 % Neut # (Auto) 19.47 H (1.4-6.5) K/uL Lymph # (Auto) 1.66 (1.2-3.4) K/uL Linn # (Auto) 0.95 H (0.11-0.59) K/uL Eos # (Auto) 0.03 (0-0.5) K/uL Baso # (Auto) 0.03 (0-0.2) K/uL Immature Gran # (Auto) 0.05 H (0.00-0.02) K/uL PT 10.8 (9.0-12.0) Seconds INR 1.1 (0.9-1.1) APTT 28.2 (21.0-31.0) Seconds PTT Ratio 1.1 Sodium (136-145) mmol/L Potassium (3.5-5.1) mmol/L Chloride (98-107) mmol/L Carbon Dioxide (21-32) mmol/L Anion Gap (3-11) BUN (7-18) mg/dl Creatinine (0.6-1.2) mg/dl Est Cr Clr Drug Dosing ml/min Est GFR ( Amer) ml/min Est GFR (Non-Af Amer) ml/min BUN/Creatinine Ratio (10-20) Glucose (70-99) mg/dl Lactate (0.4-2.0) mmol/L Calcium (8.5-10.1) mg/dl Magnesium (1.8-2.4) mg/dl Total Bilirubin (0.2-1) mg/dl AST (15-37) U/L ALT (12-78) U/L Alkaline Phosphatase (45-117) U/L Troponin I (0-0.045) ng/ml Total Protein (6.4-8.2) gm/dl Albumin (3.4-5.0) gm/dl Globulin (2.5-4.0) gm/dl Albumin/Globulin Ratio (0.9-2) Procalcitonin (0-0.5) ng/ml Urine Color Urine Appearance (Clear) Urine pH (4.5-7.5) Ur Specific [place] (1.000-1.030) Urine Protein (Negative) Urine Glucose (UA) (Negative) Urine Ketones (Negative) Urine Blood (Negative) Urine Nitrite (Negative) Urine Bilirubin (Negative) Urine Urobilinogen (Negative) Ur Leukocyte Esterase (Negative) COVID-19 Eval Order SARS-CoV-2 (PCR) (Negative)
[2020-09-16] MEDS: ACETAMINOPHEN 325 MG TAB PO PRN ×2 (15:18→19:58)
[2020-09-16] MEDS: methylPREDNISolone 60 MG in SYRINGE 0 ML IV SCH ×2 (16:22→21:51)
[2020-09-16] MEDS: ALBUT/IPRATROP 3MG/0.5MG NEB 3 ML VIAL NEB SCH ×2 (17:20→19:43)
--- NOTE | 2020-09-16 19:31 | XRay Report ---
XR chest 2V PA/lateral CLINICAL HISTORY: Abnormal chest x-ray COMPARISON STUDY: 09/16/2020, 12/16/2019 FINDINGS: The cardiac and mediastinal contours remain stable. The previously described left hilar pro minence is felt to represent left pulmonary artery. There is no adenopathy on the lateral view. On th e lateral view, there is an 11 mm opacity projects at the posterior aspect of the mid thoracic spine. Although nonspecific on a statistical basis this represents a bony summation.[ IMPRESSION: 1. No adenopathy identified on conventional urographic imaging 2. 11 mm opacity projected over the posterior aspect the mid thoracic spine, likely representing a [place] summation ACT 112: Negative or not required by law. Electronically signed by: Dayron Hare M.D. 09/16/2020 7:30 PM
[2020-09-16] MEDS: NICOTINE 7 MG/24 HR TDSY TD SCH (19:59)
[2020-09-16] MEDS: SULFAMETHOXAZOLE/TRIMETHOPRIM DS 800/160MG TAB PO SCH (19:59)
[2020-09-16] MEDS ORDERED: ALPRAZolam 0.5 MG TABLET PO SCH (21:00)
[2020-09-17] MEDS: ACETAMINOPHEN 325 MG TAB PO PRN (02:19)
--- NOTE | 2020-09-17 06:10 | Electrocardiogram Report ---
Test Reason : Blood Pressure : / mmHG Vent. Rate : 073 BPM Atrial Rate : 073 BPM P-R Int : 146 ms QRS Dur : 088 ms QT Int : 438 ms P-R-T Axes : 075 063 056 degrees QTc Int : 482 ms Normal sinus rhythm Possible Left atrial enlargement Prolonged QT Abnormal ECG When compared with ECG of 16-DEC-2019 12:43, QT has lengthened Confirmed by Pierce Tate ([id number] on 09/17/2020 6:09:39 AM Referred By: REFERRED SELF Confirmed By:Pierce Tate
[2020-09-17 06:56] LABS: Basophils # (auto) 0.01 K/uL (0-0.2); Basophils % (auto) 0.1 %; Hemoglobin 13.8 g/dL (12.0-16.0); Immature Granulocytes # (auto) 0.04 K/uL (0.00-0.02); Immature Granulocytes % (auto) 0.2 %; Lymphocytes # (auto) 1.05 K/uL (1.2-3.4); Lymphocytes % (auto) 5.9 %; Mean Corpuscular Hemoglobin 31.5 pg (25-34); Mean Corpuscular Hgb Conc 33.7 g/dL (32-36); Mean Corpuscular Volume 93.6 fL (80-100); Monocytes # (auto) 0.39 K/uL (0.11-0.59); Monocytes % (auto) 2.2 %; Neutrophils # (auto) 16.28 K/uL (1.4-6.5); Neutrophils % (auto) 91.6 %; Platelet Count 281 K/uL (130-400); RDW Coefficient of Variation 13.2 % (11.5-14.5); RDW Standard Deviation 45.4 fL (36.4-46.3); Red Blood Count 4.38 M/uL (4.2-5.4); White Blood Count 17.77 K/uL (4.8-10.8)
[2020-09-17 07:29] LABS: BUN Creatinine Ratio 25.9 (10-20); Calcium 9.1 mg/dl (8.5-10.1); Creatinine Clr Calc Pharmacy 127.9 ml/min; Est GFR (African American) 127.4 ml/min; Est GFR (Non-African American) 109.9 ml/min; Magnesium 2.3 mg/dl (1.8-2.4); Potassium 4.4 mmol/L (3.5-5.1)
[2020-09-17] MEDS: ALBUT/IPRATROP 3MG/0.5MG NEB 3 ML VIAL NEB SCH ×4 (07:31→15:17)
[2020-09-17] MEDS: SULFAMETHOXAZOLE/TRIMETHOPRIM DS 800/160MG TAB PO SCH (08:21)
[2020-09-17] MEDS: methylPREDNISolone 60 MG in SYRINGE 0 ML IV SCH (08:22)
[2020-09-17] MEDS: oxyCODONE/ACETAMINOPHEN 5mg/325mg TAB PO PRN ×2 (08:23→15:41)
[2020-09-17] MEDS: NICOTINE 7 MG/24 HR TDSY TD SCH (08:24)
[2020-09-17] MEDS ORDERED: CITALOPRAM 20 MG TAB PO SCH (09:00)
[2020-09-17] MEDS ORDERED: Nursing to Pharmacy Communication SCH (10:30)
--- NOTE | 2020-09-17 10:36 | Surgery Progress Note ---
Date of Service September 17, 2020 Assessment & Plan (1) Wound of left breast: 50 year-old female with chronic history of lesions of the inframammary crease of bilateral breasts now with superficial breast lesion of left breast 6 o'clock 2 cm from areola with small opening present and small amount of purulence expressed. No prior history of mammography. Possible hidradenitis of the inframammary folds ? Plan: No need for surgical drainage as the lesion has opened and drained on its own. Would recommend course of oral Bactrim. Will need outpatient mammography as she has never had one Continue medical management Dr. Zhang with [place] [facility] covering this weekend. Dr. Jewell has seen and examined pt, agrees with above. Admission and Anticipated Discharge Date Admission Date: September 16, 2020 Subjective feeling anxious, worn out feels flushed, face is all red pain in left breast stable, not worse Physical Exam Constitutional: WD/WN, vitals as above no acute distress and not ill appearing ENMT: Tongue is white, possible thrush Respiratory: normal respiratory effort; no respiratory distress and no labored breathing Chest (Breasts): Additional Comments: There is a wound of the left breast about 2 cm FN with erythema and small pinhole opening with fibrinous tissue present, no purulence expressed. No induration. Skin: Face is very erythematous, no swelling, no tongue swelling. Psychiatric: Orientation: alert and oriented x 3 Affect: + tearful affect Results & Data ([facility]) Vital Signs (Past 12 Hours) Vital Signs Temp Pulse Resp BP Pulse Ox 09/17/20 09:45 79 18 97 09/17/20 07:32 68 18 92 09/17/20 05:39 36.8 C 61 18 154/92 H 95 09/17/20 02:08 36.6 C Laboratory Results 09/17/20 09/17/20 09/16/20 Range/Units 06:42 06:42 10:32 WBC 17.77 H (4.8-10.8) K/uL RBC 4.38 (4.2-5.4) M/uL Hgb 13.8 (12.0-16.0) g/dL Hct 41.0 (37-47) % MCV 93.6 (80-100) fL MCH 31.5 (25-34) pg MCHC 33.7 (32-36) g/dL RDW Std Deviation 45.4 (36.4-46.3) fL RDW Coeff of Elenita 13.2 (11.5-14.5) % Plt Count 281 (130-400) K/uL MPV 10.0 (7.4-10.4) fL Immature Gran % (Auto) 0.2 % Neut % (Auto) 91.6 % Lymph % (Auto) 5.9 % Ogle % (Auto) 2.2 % Eos % (Auto) 0.0 % Baso % (Auto) 0.1 % Neut # (Auto) 16.28 H (1.4-6.5) K/uL Lymph # (Auto) 1.05 L (1.2-3.4) K/uL Ogle # (Auto) 0.39 (0.11-0.59) K/uL Eos # (Auto) 0.00 (0-0.5) K/uL Baso # (Auto) 0.01 (0-0.2) K/uL Immature Gran # (Auto) 0.04 H (0.00-0.02) K/uL Sodium 143 D (136-145) mmol/L Potassium 4.4 D (3.5-5.1) mmol/L Chloride 111 H (98-107) mmol/L Carbon Dioxide 28 (21-32) mmol/L Anion Gap 4.0 (3-11) BUN 14 (7-18) mg/dl Creatinine 0.53 L (0.6-1.2) mg/dl Est Cr Clr Drug Dosing 127.9 ml/min Est GFR ( Amer) 127.4 ml/min Est GFR (Non-Af Amer) 109.9 ml/min BUN/Creatinine Ratio 25.9 H (10-20) Glucose 125 H (70-99) mg/dl Lactate (0.4-2.0) mmol/L Calcium 9.1 (8.5-10.1) mg/dl Magnesium 2.3 (1.8-2.4) mg/dl COVID-19 Eval Order SARS-CoV-2 (PCR) NEGATIVE (Negative) 09/16/20 09/16/20 Range/Units 10:32 10:15 WBC (4.8-10.8) K/uL RBC (4.2-5.4) M/uL Hgb (12.0-16.0) g/dL Hct (37-47) % MCV (80-100) fL MCH (25-34) pg MCHC (32-36) g/dL RDW Std Deviation (36.4-46.3) fL RDW Coeff of Elenita (11.5-14.5) % Plt Count (130-400) K/uL MPV (7.4-10.4) fL Immature Gran % (Auto) % Neut % (Auto) % Lymph % (Auto) % Ogle % (Auto) % Eos % (Auto) % Baso % (Auto) % Neut # (Auto) (1.4-6.5) K/uL Lymph # (Auto) (1.2-3.4) K/uL Ogle # (Auto) (0.11-0.59) K/uL Eos # (Auto) (0-0.5) K/uL Baso # (Auto) (0-0.2) K/uL Immature Gran # (Auto) (0.00-0.02) K/uL Sodium (136-145) mmol/L Potassium (3.5-5.1) mmol/L Chloride (98-107) mmol/L Carbon Dioxide (21-32) mmol/L Anion Gap (3-11) BUN (7-18) mg/dl Creatinine (0.6-1.2) mg/dl Est Cr Clr Drug Dosing ml/min Est GFR ( Amer) ml/min Est GFR (Non-Af Amer) ml/min BUN/Creatinine Ratio (10-20) Glucose (70-99) mg/dl Lactate 1.1 (0.4-2.0) mmol/L Calcium (8.5-10.1) mg/dl Magnesium (1.8-2.4) mg/dl COVID-19 Eval Order Covid19 at [facility] SARS-CoV-2 (PCR) (Negative)
--- NOTE | 2020-09-17 14:44 | Discharge Summary ---
Date of Service September 17, 2020 Discharge Data Allergies Allergy/AdvReac Type Severity Reaction Status Date / Time Penicillins Allergy Severe HIVES, Verified 09/16/20 10:27 THROAT SWELLING Consultations 09/16/20 12:30 ED Decision to Admit Stat 09/16/20 14:24 Consult General Surgery Routine Hospital Course (1) Chronic bronchitis with acute exacerbation: Patient is a long-term smoker, has no official diagnosis of COPD. We will admit to a nonmonitored bed. Start IV Solu-Medrol at 60 mg every 8 hours, rapid titration. DuoNebs 4 times daily. Check sputum and blood cultures considering leukocytosis. O2 support as needed to keep sats at or around 92%. Smoking cessation briefly discussed with patient. We will suggest patient undergo a full PFTs once acute issues have resolved. (2) Sebaceous cyst of breast: Wound on breast appears to be a sebaceous cyst which has spontaneously drained. However, concerned regarding the area in question and the lack of previous screening. We will ask general surgery to evaluate, may need some wound care to site. I will hold off on antibiotics for now, suspect this is localized inflammation that will resolve. Patient should have appropriate cancer screening as outpatient after discharge. (3) Leukocytosis: Suspect this is secondary to oral steroid treatment prior to presentation. Patient is currently afebrile. Will await blood cultures, sputum culture. I did appreciate chest x-ray report, will repeat PA and lateral films. If patient develops other signs of infection, including fever, worsening of symptoms such as shortness of breath, or spreading erythema of breast lesion, would consider restarting antibiotics. (4) Chronic back pain: I will hold off on oxycodone for now, continue to monitor symptoms. (5) Anxiety: Will order Celexa and Xanax nightly as noted. Discharge Plan Discharge Items Patient Disposition: Home - Self-Care Reason For Visit: ACUTE EXAC OF CHRONIC BRONCHITIS Discharge Diagnosis: Acute bronchitis Acute pharyngitis Suspected Menopause Breast abscess Condition on Discharge: Fair Activity: Per Instructions section Non-emergency contact: Primary Care Provider Call non-emergency contact if: you have any medication questions and your symptoms worsen Follow-up/Referrals: Shell No PA-C [Primary Care Provider] - Diet: Regular Addtl Attending Provider Instructions: You are observed [facility] from September 16-2020 with fever, chills, shortness of breath, cough. He was diagnosed with acute bronchitis and pharyngitis possibly secondary to undiagnosed COPD. This was treated with intravenous steroids and albuterol nebulizers during her admission. You made some clinical improvement overnight and are medically stable for discharge at t his time. Please continue to take prednisone taper as prescribed. In addition please regularly use your albuterol inhaler 2 puffs 4 times a day for the next 2 days, then every 4 hours as needed after this. You were also diagnosed with multiple breast abscesses which have spontaneously drained. There is mild surrounding cellulitis with a few of these. This was treated with continuation of outpatient Bactrim. Recommend continuation of this course and follow-up with your primary care physician. You are reviewed by our wound care nurse. Please see separate discharge instructions for dressing recommendations. Please continue to work with your primary care physician regarding smoking cessation as this will help with healing. Consider dermatology referral for possible hidradenitis suppurativa. In addition you reported having a Mirena coil in for 3 years longer than it should be. Many of your symptoms are consistent with menopause especially with ongoing night sweats. Recommend following-up with your energy advisor regarding these. Consider switching citalopram to paroxetine as this can help with perimenopausal symptoms. Also consider going on menopausal hormonal therapy. Your body needs time to recover. Recommend no work for the next 2 days. Recommend gradual return to work after this over the next 1 to 2 weeks. If worsening shortness of breath please follow-up with your primary care physician. Due to suspected undiagnosed COPD recommend lung function testing in 4 to 6 weeks with your primary care physician. Kind regards, Dr. Lisandro Hampton Pending Studies at Discharge: No Stand-Alone Forms: [facility], Sm[facility] Cessation Medications and DC Order Prescriptions: New sulfamethoxazole-trimethoprim 800-160 mg Tablet 1 tab PO Q12 9 Days Qty: 18 RF: 0 prednisone 20 mg tablet See Taper mg PO DAILY 11 Days Qty: 11 RF: 0 Continued citalopram 10 mg tablet 20 mg PO QAM RF: 0 alprazolam 0.5 mg tablet 0.5 mg PO HS RF: 0 oxycodone-acetaminophen 10-325 mg tablet 1 tab PO Q4H PRN (Reason: Pain) RF: 0 albuterol sulfate 90 mcg/actuation HFA aerosol inhaler 2 puff INHALATION QID PRN (Reason: sob) RF: 0 Spiriva Respimat 2.5 mcg/actuation Mist 2 puff INHALATION QAM RF: 0 Discharge Orders: Discharge Order (Routine); Ordered 09/17/20 Ordered By: Lisandro Hampton Admission Data Admit Date/Time: 09/16/20 13:37 Attending Provider: Lisandro Hampton Admit Provider: Louis Barron Primary Care Provider: Shell No Other Providers: Louis Barron ; Girish Jewell Coding Diagnoses Chronic bronchitis with acute exacerbation J20.9; J42 Sebaceous cyst of breast N60.89 Leukocytosis D72.829 Chronic back pain M54.9; G89.29 Anxiety F41.9
== END 2020-09-17 16:10 | disposition home or self-care (01) | DRG 192 ==
LOC: ED 09:00 → SUATTDRO 13:37 → 3W 13:37